=== PATIENT | male | born 1990 | race Caucasian/White ===

== ENCOUNTER 2017-02-17 15:44 | Emergency (ER) | payer OTHER ==
[~2017-02-17 15:44] MED LIST: 'PARAFON FORTE500 M1 PO; ATARAX,VISTARIL50 MG PO; CARBIDOPA/LEVOD1 TA1 PO; CLINDAMYCIN HC300 MG PO; Fioricet 325 MG1 TAB PO; LIDOCAINE VISC100 ML MM; Motrin,Rufen800 MG PO; NAPROSYN500 MG PO; ZOFRAN 4 MG ED2 TAB PO
[2017-02-17] MEDS ORDERED: VIBRAMYCIN100 MG PO (15:55)
== END 2017-02-17 16:02 | disposition home or self-care (01) ==
LOC: ED 15:44
DX: H00.021 Hordeolum internum right upper eyelid (principal); R03.0 Elevated blood-pressure reading, without diagnosis of hypertension; F17.200 Nicotine dependence, unspecified, uncomplicated; F12.10 Cannabis abuse, uncomplicated

== ENCOUNTER 2017-02-22 18:57 | Emergency (ER) | payer OTHER ==
[~2017-02-22] VITALS: Ht 167.6 cm; Wt 86.2 kg
[~2017-02-22 18:57] MED LIST changes: +VIBRAMYCIN100 MG PO
[2017-02-22] MEDS ORDERED: PREDNISONE10 MG PO (19:27)
== END 2017-02-22 19:31 | disposition home or self-care (01) ==
LOC: ED 18:57
DX: T80.90XA Unspecified complication following infusion and therapeutic injection, initial encounter (principal); F17.200 Nicotine dependence, unspecified, uncomplicated

== ENCOUNTER → 2017-03-04 | Outpatient (CLI) | payer OTHER ==
[~2017-03-04] MED LIST changes: +PREDNISONE10 MG PO
== END | disposition home or self-care (01) ==
LOC: US 13:00
DX: R23.4 Changes in skin texture (principal)

== ENCOUNTER → 2017-04-17 | Outpatient (CLI) | payer OTHER | END | disposition home or self-care (01) | LOC: US 06:00 | DX: B18.2 Chronic viral hepatitis C (principal) ==

== ENCOUNTER 2017-08-24 17:15 | Inpatient (IN) | payer OTHER ==
[~2017-08-24] VITALS: Ht 167.6 cm; Wt 79.6 kg
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
[2017-08-24 17:15] VITALS: BP 135/83
--- NOTE | 2017-08-24 17:49 | NUR ---
PATIENT CURRENTLY IN BED WITH CELL PHONE. PATIENT COOPERATIVE AT THE MOMENT. SECURITY AT BEDSIDE.
--- NOTE | 2017-08-24 17:50 | NUR ---
DR DEE AT BEDSIDE
[2017-08-24 18:02] LABS: BASO % 0.4 % (0.0-1.0); EOS % 0.3 % (1.0-4.0); HEMATOCRIT 48.5 % (42.0-52.0); HEMOGLOBIN 16.4 g/dl (14.0-18.0); MEAN CELL VOLUME 88.5 fl (80.0-94.0); MEAN CORPUSCULAR HGB 29.9 pg (27.0-31.0); MEAN CORPUSCULAR HGB CONC 33.8 g/dl (33.0-37.0); MEAN PLATELET VOLUME 11.5 fl (9.6-12.3); MONO # 0.4 10*3/uL (0.1-1.0); MONO % 4.6 % (3.0-9.0); NEUT # 5.9 10*3/uL (2.3-7.9); NEUT % 62.4 % (47.0-73.0); PLATELET COUNT AUTOMATED 221 10*3/uL (130-400); RED BLOOD COUNT 5.48 10*6/uL (4.50-5.90); WHITE BLOOD COUNT 9.4 10*3/uL (4.8-10.8)
--- NOTE | 2017-08-24 18:08 | NUR ---
PT TO RADIOLOGY WITH CASH APPLICATION CLERK AND PATIENT AT THIS TIME
[2017-08-24 18:19] LABS: INTERNATIONAL NORM RATIO 0.9 (2.0-3.5)
[2017-08-24 18:23] LABS: ALBUMIN 3.9 gm/dl (3.1-4.5); ALKALINE PHOSPHATASE 103 U/L (45-117); BUN 9 mg/dl (7-24); CHLORIDE 111 mmol/L (98-107); CREATININE 1.22 mg/dL (0.70-1.30); POTASSIUM 3.9 mmol/L (3.5-5.1); SGOT/AST 39 IU/L (3-35); SGPT/ALT 86 U/L (12-78); SODIUM 145 mmol/L (136-145); TOTAL PROTEIN 9.3 gm/dL (6.4-8.2)
[2017-08-24 18:31] LABS: THYROID STIM HORMONE (HS) 0.824 uIU/ml (0.358-4.75)
--- NOTE | 2017-08-24 18:34 | NUR ---
PATIENT RESTING IN BED. CALM AND COOPERATIVE AT THIS TIME
--- NOTE | 2017-08-24 18:59 | NUR ---
PT RESTING IN BED CALL LIGHT IN REACH NO DISTRESS NOTED
--- NOTE | 2017-08-24 19:01 | NUR ---
PT GIVEN A BLANKET AND PILLOW TEARFUL IN ROOM VOICES NO COMPLAINTS THANKED ME FOR BLANKETS NO DISTRESS NOTED CALL LIGHT IN REACH
--- NOTE | 2017-08-24 19:31 | NUR ---
PT TO BATHROOM IN ROOM LIMPING ON RIGHT KNEE ASSISTED TO BED CALL LIGHT IN REACH
[2017-08-24 19:38] LABS: BILIRUBIN NEGATIVE (NEGATIVE); BLOOD NEGATIVE (NEGATIVE); CLARITY CLEAR (CLEAR); COLOR YELLOW (YELLOW); GLUCOSE NEGATIVE (NEGATIVE); KETONE NEGATIVE (NEGATIVE); LEUKO ESTERASE NEGATIVE (NEGATIVE); NITRITE NEGATIVE (NEGATIVE); UROBILINOGEN 0.2 E.U./dl (0.2-1.0)
[2017-08-24 19:39] VITALS: BP 136/80
[2017-08-24 19:47] LABS: URINE AMPHETAMINES < 1000 (1000ng/ml); URINE BARBITURATES < 200 (200ng/ml); URINE BENZODIAZEPINES < 200 (200ng/ml); URINE CANNABINOIDS (THC) > 50 (50ng/ml); URINE COCAINE > 300 (300ng/ml); URINE METHADONE < 300 (300ng/ml); URINE OPIATES < 300 (300ng/ml)
[2017-08-24 19:51] LABS: EPITHELIAL CELLS 0-2; RBC 0-2 rbc/hpf (0-2)
[2017-08-24 19:52] LABS: URINE PHENCYCLIDINE < 25 (25ng/ml)
--- NOTE | 2017-08-24 21:18 | NUR ---
PT WANTS TO GO HOME DR CALDERON NOTIFIED PT RESTING IN BED DOES N OT WANT TO BE ADMITTED CALL LIGHT IN REACH
[2017-08-24 22:35] VITALS: BP 112/75
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
--- NOTE | 2017-08-25 00:16 | NUR ---
TITRATED LEVOPHED DOWN TO 9 MICS/MIN.
--- NOTE | 2017-08-25 00:47 | NUR ---
MOTRIN FOR "I FEEL A MIGRAINE COMING ON", ROBAXIN FOR ACHING LEGS, AND ATIVAN IV FOR RELAXATION/AGITATION AT 2255 SOMEWHAT EFFECTIVE.... PT STATES "WELL, I DIDN'T GET THE MIGRAINE - YOU WOULD KNOW BECAUSE I WOULD BE STRAIGHT UP PUKING FOR 8 HOURS!"
--- NOTE | 2017-08-25 01:52 | NUR ---
PT SLEEPING..... BODY RELAXED.
--- NOTE | 2017-08-25 02:47 | NUR ---
PT LAYING ON HIS SIDE SLEEPING.
--- NOTE | 2017-08-25 02:47 | NUR ---
ADDENDUM: PT REFUSED LIZBETH BLACK THIS SHIFT. WILL TRY AGAIN IN AM.
[2017-08-25 04:00] VITALS: BP 138/83
--- NOTE | 2017-08-25 06:46 | NUR ---
PT PLEASANT AND COOPERATIVE. WHEN I ASK PT IF HE STILL WANTS TO HARM HIMSELF, HE SAYS "I JUST HATE MY LIFE. EVERYTIME I TRY TO DO SOMETHING POSITIVE, SOMETHING STUPID LIKE THIS HAPPENS AGAIN."
[2017-08-25 08:00] VITALS: BP 116/76
--- NOTE | 2017-08-25 08:41 | NUR ---
NOTIFIED [facility] DEPARTMENT OF NEW CONSULT FOR . THEY STATED THAT IS COVERING FOR AND THAT HE IS CURRENTLY IN HOSPITAL AND THEY WILL NOTIFY OF NEW CONSULT.
--- NOTE | 2017-08-25 09:40 | NUR ---
met with client, to assess for needs and suicidal ideation, client denies to me he is suicidal, he told me a lot of hx and his used of drugs, he doesnt want to go anywhere reports to me he has gone all places and has been to suboxone clinic and hates that, he was willing for a resource list and wants outpatient therapy, so i did give him that and encouraged him to call and get an appt, he was agreeable, he does work and is very driven to do this, but he said that he has poor impulse control and he knows he may use drugs again, he did detox himself. client could be dc to home. he need follow up outpatient. i cant make his appts as its saturday.i did give him a list.
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
== END 2017-08-25 12:00 | disposition home or self-care (01) | DRG 897 ==
LOC: ED 17:15 → EDHOLD 20:53 → ICCU 21:46
PROVIDERS: Emergency Medicine; ADMIT Internal Medicine
DX: F10.129 Alcohol abuse with intoxication, unspecified (principal); F11.23 Opioid dependence with withdrawal; E87.8 Other disorders of electrolyte and fluid balance, not elsewhere classified; R45.851 Suicidal ideations; F14.10 Cocaine abuse, uncomplicated; F32.9 Major depressive disorder, single episode, unspecified; M54.30 Sciatica, unspecified side; R03.0 Elevated blood-pressure reading, without diagnosis of hypertension; M25.461 Effusion, right knee; R00.0 Tachycardia, unspecified; R73.9 Hyperglycemia, unspecified; F19.10 Other psychoactive substance abuse, uncomplicated; F12.10 Cannabis abuse, uncomplicated; R74.0 Nonspecific elevation of levels of transaminase and lactic acid dehydrogenase [LDH]; F13.10 Sedative, hypnotic or anxiolytic abuse, uncomplicated; G43.909 Migraine, unspecified, not intractable, without status migrainosus; E66.3 Overweight; Z83.3 Family history of diabetes mellitus; Z82.49 Family history of ischemic heart disease and other diseases of the circulatory system; S89.91XA Unspecified injury of right lower leg, initial encounter; V89.2XXA Person injured in unspecified motor-vehicle accident, traffic, initial encounter; Z72.0 Tobacco use; Z71.6 Tobacco abuse counseling; Y93.89 Activity, other specified; Y92.89 Other specified places as the place of occurrence of the external cause; Y99.8 Other external cause status; Z68.28 Body mass index [BMI] 28.0-28.9, adult

== ENCOUNTER → 2017-09-11 | Outpatient (CLI) | payer OTHER | END | disposition home or self-care (01) | LOC: MRI 10:59 | DX: S89.91XA Unspecified injury of right lower leg, initial encounter (principal) ==

== ENCOUNTER 2017-10-02 11:22 | Inpatient (IN) | payer OTHER ==
[~2017-10-02] VITALS: Ht 167.6 cm; Wt 84.6 kg
[2017-10-02 11:36] VITALS: BP 143/70
[2017-10-02 11:58] LABS: BASO # 0.1 10*3/uL (0.0-0.1); BASO % 0.8 % (0.0-1.0); EOS # 0.2 10*3/uL (0.0-0.4); EOS % 3.7 % (1.0-4.0); HEMATOCRIT 44.6 % (42.0-52.0); HEMOGLOBIN 14.9 g/dl (14.0-18.0); LYMPH # 1.6 10*3/uL (1.3-4.4); MEAN CELL VOLUME 91.8 fl (80.0-94.0); MEAN CORPUSCULAR HGB 30.7 pg (27.0-31.0); MEAN CORPUSCULAR HGB CONC 33.4 g/dl (33.0-37.0); MEAN PLATELET VOLUME 11.5 fl (9.6-12.3); MONO # 0.6 10*3/uL (0.1-1.0); MONO % 9.5 % (3.0-9.0); NEUT # 3.6 10*3/uL (2.3-7.9); NEUT % 59.7 % (47.0-73.0); PLATELET COUNT AUTOMATED 161 10*3/uL (130-400); RED BLOOD COUNT 4.86 10*6/uL (4.50-5.90); RED CELL DISTRI WIDTH 13.5 % (0-14.5)
[2017-10-02 12:08] LABS: ACT PARTIAL THROMBO TIME 24.3 SECONDS (20.8-31.5); INTERNATIONAL NORM RATIO 0.9 (2.0-3.5)
[2017-10-02 12:16] LABS: ALBUMIN 3.4 gm/dl (3.1-4.5); ALKALINE PHOSPHATASE 78 U/L (45-117); BUN 15 mg/dl (7-24); CHLORIDE 106 mmol/L (98-107); ETHYL ALCOHOL < 3.0 mg/dl (<3); POTASSIUM 4.1 mmol/L (3.5-5.1); SGOT/AST 52 IU/L (3-35); SGPT/ALT 99 U/L (12-78); SODIUM 139 mmol/L (136-145); TOTAL PROTEIN 7.7 gm/dL (6.4-8.2)
[2017-10-02 12:24] LABS: THYROID STIM HORMONE (HS) 0.715 uIU/ml (0.358-4.75)
[2017-10-02 13:18] VITALS: BP 140/80
[2017-10-02 16:00] VITALS: BP 101/42
[2017-10-02 17:59] LABS: BILIRUBIN NEGATIVE (NEGATIVE); BLOOD NEGATIVE (NEGATIVE); CLARITY CLEAR (CLEAR); COLOR YELLOW (YELLOW); GLUCOSE NEGATIVE (NEGATIVE); KETONE NEGATIVE (NEGATIVE); LEUKO ESTERASE NEGATIVE (NEGATIVE); NITRITE NEGATIVE (NEGATIVE); SPECIFIC GRAVITY <= 1.005 (1.005-1.030); UROBILINOGEN 0.2 E.U./dl (0.2-1.0)
[2017-10-02 18:08] LABS: URINE AMPHETAMINES < 1000 (1000ng/ml); URINE BARBITURATES < 200 (200ng/ml); URINE BENZODIAZEPINES < 200 (200ng/ml); URINE CANNABINOIDS (THC) > 50 (50ng/ml); URINE COCAINE > 300 (300ng/ml); URINE METHADONE < 300 (300ng/ml); URINE OPIATES > 300 (300ng/ml)
[2017-10-02 18:10] LABS: URINE PHENCYCLIDINE > 25 (25ng/ml)
[2017-10-02 18:14] LABS: BACTERIA TRACE; RBC 0-2 rbc/hpf (0-2)
[2017-10-02 20:00] VITALS: BP 121/57
[2017-10-03 08:00] VITALS: BP 123/69
[2017-10-03 16:00] VITALS: BP 113/73
[2017-10-03 20:00] VITALS: BP 114/53
[2017-10-04] VITALS: BP 90/48
[2017-10-04 08:00] VITALS: BP 138/80
[2017-10-04 16:00] VITALS: BP 118/59
[2017-10-04 20:00] VITALS: BP 130/63; BP 98/49
[2017-10-05] VITALS: BP 111/67
[2017-10-05 08:00] VITALS: BP 105/54
[2017-10-05] MEDS ORDERED: NICODERM CQ1 EAC2 T (10:07)
[2017-10-05] MEDS ORDERED: ROBAXIN-750750 MG PO (10:07)
== END 2017-10-05 12:10 | disposition home or self-care (01) | DRG 897 ==
LOC: ED 11:22 → EDHOLD 12:01 → 4E 12:31
PROVIDERS: Emergency Medicine
DX: F11.10 Opioid abuse, uncomplicated (principal); R45.851 Suicidal ideations; F12.10 Cannabis abuse, uncomplicated; F14.10 Cocaine abuse, uncomplicated; F32.9 Major depressive disorder, single episode, unspecified; G43.909 Migraine, unspecified, not intractable, without status migrainosus; E66.3 Overweight; M54.32 Sciatica, left side; B19.20 Unspecified viral hepatitis C without hepatic coma; G89.29 Other chronic pain; M54.31 Sciatica, right side; F17.200 Nicotine dependence, unspecified, uncomplicated; Z96.652 Presence of left artificial knee joint; Z72.89 Other problems related to lifestyle; Z83.3 Family history of diabetes mellitus; Z82.49 Family history of ischemic heart disease and other diseases of the circulatory system; Z68.30 Body mass index [BMI] 30.0-30.9, adult

== ENCOUNTER → 2019-07-01 | Outpatient (CLI) | payer OTHER ==
[~2019-07-01] MED LIST changes: +NICODERM CQ1 EAC2 T; +ROBAXIN-750750 MG PO
== END | disposition home or self-care (01) ==
LOC: MRI 13:00
DX: M51.16 Intervertebral disc disorders with radiculopathy, lumbar region (principal); M48.061 Spinal stenosis, lumbar region without neurogenic claudication; M99.03 Segmental and somatic dysfunction of lumbar region

== ENCOUNTER 2023-05-09 11:39 | Emergency (ER) | payer OTHER ==
[~2023-05-09] VITALS: Ht 167.6 cm; Wt 86.2 kg
[2023-05-09] MEDS ORDERED: BUPRENORPHINE HY8 MG SL (12:51)
== END 2023-05-09 12:50 | disposition left against medical advice (07) ==
LOC: ED 11:39
DX: M54.50 Low back pain, unspecified (principal); Z53.21 Procedure and treatment not carried out due to patient leaving prior to being seen by health care provider

== ENCOUNTER → 2025-01-29 | Outpatient (CLI) | payer BC ==
[~2025-01-29] MED LIST changes: +BUPRENORPHINE HY8 MG SL
== END | disposition home or self-care (01) ==
LOC: RAD 00:21
PROVIDERS: ATTEND Family Medicine
DX: M76.891 Other specified enthesopathies of right lower limb, excluding foot (principal); M25.561 Pain in right knee

== ENCOUNTER 2025-06-09 10:16 | Emergency (ER) | payer BC ==
[~2025-06-09] VITALS: Ht 167.6 cm; Wt 97.5 kg
[2025-06-09] MEDS ORDERED: DERMABOND 1 EA APPL T ONE (17:08)
== END 2025-06-09 11:41 | disposition home or self-care (01) ==
LOC: ED 10:16
DX: K42.9 Umbilical hernia without obstruction or gangrene (principal); F17.200 Nicotine dependence, unspecified, uncomplicated; Z98.890 Other specified postprocedural states